=== PATIENT | female | born 1950 | race Caucasian/White ===

== ENCOUNTER 2022-02-16 05:54 | Day surgery (SDC) | payer MEDICARE, SELFPAY ==
[2022-02-16] VITALS (8 sets, daily range): BP systolic 114–171; BP diastolic 58–79; PULSE 65–80; RESP 16–18; TEMP 36.1–36.5; O2SAT 96–100; BMI 34.7
[2022-02-16 06:40] LABS: Bedside Glucose 93 mg/dL (74-106)
[2022-02-16] MEDS: Lactated Ringers 1,000 ML 30 ML IV (06:47)
--- NOTE | 2022-02-16 07:27 | PCM.OPRPT ---
Problems Associated Problem List Diagnoses (1) Left renal stone: Report of Operation Date of Procedure: 02/16/22 Pre-Operative Diagnosis: Left renal calculus Post-Operative Diagnosis: Same Surgery/Procedure Performed:: Cystoscopy with left ureteral stent insertion, left extracorporal shockwave lithotripsy Surgeon: Silvana Munoz Type of Anesthesia: General Description of Procedure: The patient is a 71-year-old female with a large left renal calculus who presents for definitive surgical intervention. Informed consent was obtained. The patient was taken to the operating room and placed on the operating room table. Anesthesia monitored the head, neck, airway, IV access and vital signs throughout the case. Once anesthesia was administered, the patient was placed into dorsal lithotomy position was prepped and draped in usual sterile fashion. The cystoscope was inserted through the urethra under direct visualization into the urinary bladder. The bladder mucosa was visualized in its entirety and found to be without evidence of erythema mass or abnormality. The left ureteral orifice was easily identified and intubated with a 0.035 Glidewire. It curled into the renal pelvis and a 6 x 24 JJ stent was placed over the wire without difficulty, being positioned in the renal pelvis as well as curling in the urinary bladder. The patient's bladder was then emptied and she was repositioned on the operative table. The stone being easily identified, was shocked 3000 times and appeared to be fragmented at the conclusion of the case. At this point the patient was awakened and taken the recovery room in good condition. There were no complications during this procedure. Please note that there is 1 approximately 6 to 7 mm distal right lower pole calculus on fluoroscopy. Grafts/Implants Used: 6 x 24 JJ stent Complications None Admit VTE Documentation VTE Present on Admission: Yes VTE Mechan Device Prophylaxis: SCD's VTE Pharm Prophylaxis ordered?: No Reason prophylaxis not ordered:: Treatment Not Indicated
--- NOTE | 2022-02-16 07:28 | DCINST_ITS ---
Discharge Instructions Diet Discharge Diet: No restrictions Activity Discharge Activity: Return to Normal Activity and [place] [address] (When not taking pain medication) May resume sexual activity in: No Restrictions Dressing / Incision Call your doctor if you observe: Fever of 101 or Higher, Inability to urinate and Inability to have a bowel movement Follow Up Care Please Follow Up With: Silvana Munoz MD When: 2 to 3 weeks with a KUB, call office for appointment Test Results: Test results from this visit will be discussed in further detail at your follow-up appointment, if applicable. Discharge Plan Admission Attending Provider: Silvana Munoz Discharge Orders/Prescriptions Prescriptions: New ondansetron HCl [ondansetron HCl] 8 MG tablet 8 mg PO Q8H PRN PRN (Reason: Nausea) 7 Days Qty: 20 RF: 0 oxycodone-acetaminophen [oxycodone-acetaminophen] 1 TABLET tablet 2 tab PO Q8H PRN PRN (Reason: Pain) 7 Days Qty: 20 RF: 0 cephalexin [cephalexin] 500 MG capsule 500 mg PO Q12 3 Days Qty: 6 RF: 0 phenazopyridine [Pyridium] 200 MG tablet 200 mg PO TID PRN PRN (Reason: Bladder Spasms) 7 Days Qty: 30 RF: 0 No Action Auto Logus 1 drp EACH EYE Q6H RF: 0 losartan 50 mg Tablet 50 mg PO BID RF: 0 metformin 500 mg Tablet 500 mg PO DAILY RF: 0 ondansetron HCl [Zofran] 4 mg Tablet 4 mg PO Q6H PRN (Reason: Nausea) RF: 0 tramadol 50 mg Tablet 50 mg PO BID PRN (Reason: Pain) RF: 0 ascorbic acid (vitamin C) [Vitamin C] 250 mg Tablet 250 mg PO DAILY RF: 0 pantoprazole 40 mg Tablet,Delayed Release (Dr/Ec) 40 mg PO DAILY RF: 0 zinc 25 mg Tablet 25 mg PO DAILY RF: 0 hydroxychloroquine [Plaquenil] 200 mg Tablet 300 mg PO DAILY RF: 0 zolpidem 10 mg Tablet 10 mg PO QHS RF: 0 Refresh Celluvisc 1 % Dropperette 1 drp EACH EYE BID RF: 0 gabapentin 300 mg Tablet 300 mg PO TID RF: 0 Neupro 4 mg/24 hour Patch 24 Hour 4 mg TRANSDERMAL DAILY RF: 0 cholecalciferol (vitamin D3) [Vitamin D3] 125 mcg (5,000 unit) Tablet 125 mcg PO DAILY RF: 0 thyroid (pork) [[place] Thyroid] 120 mg Tablet 120 mg PO DAILY RF: 0 Referrals / Follow Up: CHARLEY SAINZ [Other] Disposition Disposition (needs filled in before D/C Order can be placed): Home, Self Care
[2022-02-16] MEDS: Cefazolin 2 GM in 0.9% Normal Saline 100 ML IV (07:30)
--- NOTE | 2022-02-16 08:40 | SUR.PHASEI ---
PATIENT STARTED COMPLAINING OF LEFT SIDE CHEST PRESSURE RATING A 3 AND SOMETHING SHE HAS NEVER HAD BEFORE. OXYGEN 2 LITERS APPLIED AND STAT EKG CALLED FOR. DR. LYONS NOTIFIED AND ORDERED A STAT TROPONIN. EKG DONE BY RESPIRATORY AND SHOWED NORMAL SINUS RHYTHM. DR. LYONS NOTIFIED OF THIS AND STATED IF TROPONIN IS NORMAL RUN A STAT D DIMER. PATIENT IS RESTING COMFORTABLY OTHER RODRIGUEZ, NO NAUSEA AND VITALS STABLE.
--- NOTE | 2022-02-16 09:13 | EKG12_ITS ---
Test Reason : Blood Pressure : / mmHG Vent. Rate : 069 BPM Atrial Rate : 069 BPM P-R Int : 198 ms QRS Dur : 084 ms QT Int : 428 ms P-R-T Axes : 074 -01 001 degrees QTc Int : 458 ms Normal sinus rhythm Normal ECG No previous ECGs available Confirmed by MIKE MAOHNEY, WAI ([id number]), marketing editor LOU FRIAS ([id number]) on 02/21/2022 12:20:52 PM Referred By: Silvana Munoz Confirmed By:WAI MCKEON MD
[2022-02-16 09:23] LABS: Troponin-I HS 4 pg/mL (3.0-54.0)
[2022-02-16 09:25] LABS: Bedside Glucose 85 mg/dL (74-106)
--- NOTE | 2022-02-16 09:52 | SUR.PHASEI ---
TROPONIN IS NEGATIVE. DR. LYONS NOTIFIED AND ORDERED A STAT D DIMER. ALREADY DRAWN BY THIS NURSE. SINCE PATIENT'S PRESSURE IS BETTER SHE IS OK TO GO OVER TO PHASE 2 TO WAIT ON THIS RESULT.
[2022-02-16 10:10] LABS: D-Dimer Quantitative (DVT/PE) 0.54 FEU/ug/m (0.27-0.49)
== END 2022-02-16 11:32 | disposition home or self-care (01) ==
LOC: SDC 05:56 → AC 05:58
PROVIDERS: Anesthesiology; Referring Provider Urology; Visit Provider Urology
PROC: (CPT 50590; principal; 2022-02-16 07:20)
DX: N20.0 Calculus of kidney (principal); M35.00 Sjogren syndrome, unspecified; M06.9 Rheumatoid arthritis, unspecified; E11.9 Type 2 diabetes mellitus without complications; I10 Essential (primary) hypertension; E03.9 Hypothyroidism, unspecified; R11.0 Nausea; R10.30 Lower abdominal pain, unspecified; Z79.890 Hormone replacement therapy; Z79.899 Other long term (current) drug therapy; Z79.84 Long term (current) use of oral hypoglycemic drugs; M19.90 Unspecified osteoarthritis, unspecified site; K21.9 Gastro-esophageal reflux disease without esophagitis; G25.81 Restless legs syndrome
CPT/HCPCS: 52332; 82962; 84484; 85379; 93005; J7120; C2617; J2405

== ENCOUNTER → 2022-03-09 | Outpatient (CLI) | payer MEDICARE, SELFPAY ==
--- NOTE | 2022-03-09 12:55 | RAD_ITS ---
EXAM: XR ABDOMEN, 1 VIEW CLINICAL INDICATION: KUB- KIDNEY CALC TECHNIQUE: Frontal supine view of the abdomen/pelvis. This report was created using [employer] report generation technology. COMPARISON: None. FINDINGS: LOWER THORAX: No acute pathology. GASTROINTESTINAL TRACT: Unremarkable. Non-obstructive. No bowel or stomach distention. ORGANS: There are multiple metallic clips in the right upper quadrant. This is consistent for a cholecystectomy. No organomegaly. No abnormal calcifications. BONES/JOINTS: Degenerative findings in the lumbar spine. SOFT TISSUES: No acute pathology. TUBES, LINES AND DEVICES: Double-J left ureteral stent. RAD/Abdomen Single View IMPRESSION: No acute findings. Electronically Signed: Carlos A Bryan MD at 17:03 EDT ,
== END | disposition home or self-care (01) ==
LOC: MTRAD 12:41
PROVIDERS: Referring Provider Urology; Visit Provider Urology
DX: N20.0 Calculus of kidney (principal)
CPT/HCPCS: 74018

== ENCOUNTER → 2022-03-19 | Outpatient (CLI) | payer MEDICARE, SELFPAY ==
--- NOTE | 2022-03-19 13:40 | RAD_ITS ---
STUDY: XR Abdomen 1 View 03/19/2022 1:46 PM REASON FOR EXAM: Female, 71 years old. ABDOMINAL PAIN KIDNEY STONES TECHNIQUE: XR Abdomen 1 View COMPARISON: 03.09.22 FINDINGS: Double-J left ureteral stent in place. There are multiple metallic clips in the right upper quadrant. This is consistent for a cholecystectomy. Calculi visualized overlying the region of the left kidney. There is an unremarkable bowel gas pattern. There is no demonstrated free abdominal air. The visualized liver, spleen and kidneys are grossly normal in size and morphology. Normal soft tissue structures. There are diffuse degenerative changes of the visualized lumbar spine. There is scoliosis of the lumbar spine. RAD/Abdomen Single View IMPRESSION: Calculi visualized overlying the region of the left kidney. Electronically Signed: Carlos A Bryan MD at 14:46 EDT ,
== END | disposition home or self-care (01) ==
LOC: MTRAD 13:39
PROVIDERS: Referring Provider Urology; Visit Provider Urology
DX: N20.0 Calculus of kidney (principal)
CPT/HCPCS: 74018

== ENCOUNTER 2022-04-05 13:20 | Day surgery (SDC) | payer MEDICARE, SELFPAY ==
[2022-04-05] VITALS (7 sets, daily range): BP systolic 92–153; BP diastolic 63–80; PULSE 68–78; RESP 16–18; TEMP 36.2–36.3; O2SAT 90–100; BMI 34.3
[2022-04-05] MEDS: Lactated Ringers 1,000 ML 15 ML IV ×2 (14:03→16:15)
[2022-04-05] MEDS: Cefazolin 2 GM in 0.9% Normal Saline 100 ML IV (14:56)
[2022-04-05] MEDS: DiphenhydrAMINE 50 MG/ML Syringe 25 MG IV (15:32)
--- NOTE | 2022-04-05 15:52 | EX.PCM.DISCH ---
Discharge Instructions Diet Discharge Diet: No restrictions Activity Discharge Activity: Return to Normal Activity Dressing / Incision Call your doctor if you observe: Fever of 101 or Higher, Inability to urinate and Inability to have a bowel movement Follow Up Care Please Follow Up With: Silvana Munoz MD When: 2-3 weeks in the office with KUB Test Results: Test results from this visit will be discussed in further detail at your follow-up appointment, if applicable. Discharge Plan Admission Attending Provider: Silvana Munoz Primary Care Provider: CHARLEY SAINZ Discharge Orders/Prescriptions Prescriptions: New ondansetron HCl [ondansetron HCl] 8 mg tablet 8 mg PO Q8H PRN PRN (Reason: Nausea) 7 Days Qty: 20 0RF oxycodone-acetaminophen [Percocet] 5-325 mg tablet 1 tab PO Q8H PRN (Reason: pain) 5 Days Qty: 15 0RF cephalexin [cephalexin] 500 mg capsule 500 mg PO Q12 3 Days Qty: 6 0RF Continued Auto Logus 1 drp EACH EYE Q6H losartan 50 mg Tablet 50 mg PO BID metformin 500 mg Tablet 500 mg PO DAILY ondansetron HCl 4 mg Tablet 4 mg PO Q6H PRN (Reason: Nausea) tramadol 50 mg Tablet 50 mg PO BID PRN (Reason: Pain) ascorbic acid (vitamin C) [Vitamin C] 250 mg Tablet 250 mg PO DAILY pantoprazole 40 mg Tablet,Delayed Release (Dr/Ec) 40 mg PO DAILY zinc 25 mg Tablet 25 mg PO DAILY hydroxychloroquine [Plaquenil] 200 mg Tablet 300 mg PO DAILY zolpidem 10 mg Tablet 10 mg PO QHS carboxymethylcellulose sodium 1 % Dropperette 1 drp EACH EYE BID gabapentin 300 mg Tablet 300 mg PO TID Neupro 4 mg/24 hour Patch 24 Hour 4 mg TRANSDERMAL DAILY cholecalciferol (vitamin D3) [Vitamin D3] 125 mcg (5,000 unit) Tablet 125 mcg PO DAILY thyroid (pork) [[place] Thyroid] 120 mg Tablet 120 mg PO DAILY phenazopyridine [Pyridium] 200 MG tablet 200 mg PO TID PRN PRN (Reason: Bladder Spasms) 7 Days Qty: 30 0RF Xiidra 5 % Dropperette 1 drp EACH EYE Q12H Referrals / Follow Up: EMELI,CHARLEY [Other] Disposition Disposition (needs filled in before D/C Order can be placed): Home, Self Care
[2022-04-05 16:16] LABS: Bedside Glucose 83 mg/dL (74-106)
[2022-04-05 17:35] LABS: Bedside Glucose 74 mg/dL (74-106)
--- NOTE | 2022-04-06 12:22 | PCM.OPRPT ---
Report of Operation Date of Procedure: 04/05/22 Pre-Operative Diagnosis: Bilateral renal stones Post-Operative Diagnosis: Same Surgery/Procedure Performed:: Bilateral renal extracorporal shockwave lithotripsy Surgeon: Silvana Munoz Type of Anesthesia: General Specimen's removed: None Description of Procedure: The patient is a 71-year-old female with bilateral renal stones. Previously she has undergone a lithotripsy for a 1.5 cm left renal calculus stent has been removed. She has a small remaining residual on the left and an approximately 6 to 7 mm stone on the right side. She has agreed to proceed with shockwave lithotripsy for both sides. The patient was taken to the operating room and placed on the lithotripter table. Anesthesia monitored the head, neck, airway, IV access and vital signs throughout the case. Once anesthesia was appropriately administered, she was positioned with the lithotripter and the stones in the right kidney were seen and 1600 shocks were applied. The stones were no longer visible. A total of 1400 shocks were then applied to the remaining left stone debris. The patient was then awakened and taken to the recovery room in good condition. There were no complications during this procedure. Grafts/Implants Used: None Complications None Admit VTE Documentation VTE Present on Admission: Yes VTE Mechan Device Prophylaxis: SCD's VTE Pharm Prophylaxis ordered?: No Reason prophylaxis not ordered:: Treatment Not Indicated
== END 2022-04-05 17:47 | disposition home or self-care (01) ==
LOC: SDC 13:21 → AC 13:22
PROVIDERS: Referring Provider Urology; Visit Provider Urology
PROC: (CPT 50590; principal; 2022-04-05 14:50)
DX: N20.0 Calculus of kidney (principal); M06.9 Rheumatoid arthritis, unspecified; E11.9 Type 2 diabetes mellitus without complications; K21.9 Gastro-esophageal reflux disease without esophagitis; Z87.19 Personal history of other diseases of the digestive system; G25.81 Restless legs syndrome; I10 Essential (primary) hypertension
CPT/HCPCS: 50590; 00873; 82962; J7120; J2405

== ENCOUNTER → 2022-04-23 | Outpatient (CLI) | payer MEDICARE, SELFPAY ==
--- NOTE | 2022-04-23 08:52 | RAD_ITS ---
INDICATION: CALC OF KIDNEY EXAMINATION/TECHNIQUE: X-RAY - XR Abdomen 1 View COMPARISON: 03/19/2022. FINDINGS: Surgical clips visualized in the gallbladder fossa. The previously visualized left double-J ureteral stent has been removed. A subtle calcification is visualized superimposed over the mid pole of the left kidney measuring 0.2 cm. The remaining calcifications that were previously visualized over the left kidney are not seen. BOWEL GAS PATTERN: Non-obstructive. No bowel or stomach distention. FREE AIR: Not assessed on a single supine view. ORGANOMEGALY: Not seen. CALCIFICATIONS: No abnormal calcifications observed. LOWER CHEST: No acute pathology. BONES AND SOFT TISSUES: No acute pathology. RAD/Abdomen Single View IMPRESSION: Residual 0.2 cm calcification is visualized superimposed over the lateral aspect of the midpole of the left kidney. decreased stone burden is seen in comparison to the prior study. The previously visualized left ureteral stent has been removed. Electronically Signed: Vicente Mabry MD at 14:07 EDT ,
== END | disposition home or self-care (01) ==
PROVIDERS: Referring Provider Urology; Visit Provider Urology
DX: N20.0 Calculus of kidney (principal)
CPT/HCPCS: 74018

== ENCOUNTER → 2023-02-11 | Outpatient (CLI) | payer MEDICARE, SELFPAY ==
--- NOTE | 2023-02-11 07:51 | CT_ITS ---
STUDY: CT ABDOMEN AND PELVIS WITHOUT CONTRAST REASON FOR EXAM: Female, 72 years old. Kidney stone. LT SIDE ON US, LITHOTRIPSY, CIERA, HTN RADIATION DOSAGE (If Supplied By Facility): CTDIvol = ( 16.7 ) mGy, DLP = ( 746.71 ) mGycm TECHNIQUE: Transaxial images were obtained from the dome of the diaphragm to the symphysis pubis without oral contrast, and without intravenous contrast. Sagittal and coronal images were reconstructed. Individualized dose optimization techniques were used for this CT. COMPARISON: Abdominal x-ray dated April 23, 2022 FINDINGS: The visualized lung bases are unremarkable. The visualized portions of the heart are within normal limits. Normal liver. There are surgical clips in the gallbladder fossa consistent with a prior cholecystectomy. Normal spleen. Normal pancreas. Normal bilateral adrenal glands. Multiple small stones are scattered throughout both kidneys, slightly more on the right than left. The largest stone on the right measures 5.7 mm and on the left 5.8 mm. There is no visualized hydronephrosis or hydroureter. Normal visualized stomach. Normal small intestine. There are numerous descending and sigmoid colonic diverticula consistent with diverticulosis. A few diverticula of the descending colon are also present. The appendix is visualized and appears normal. No free air or free fluid or bowel dilatation is seen. There is no evidence of bowel obstruction. There is diffuse atherosclerotic calcification of the abdominal aorta, without a demonstrated aneurysm. Normal inferior vena cava. Normal retroperitoneum. Normal urinary bladder. Unremarkable uterus and adnexa. There is a small umbilical hernia containing fat. There are diffuse degenerative changes of the visualized lumbar spine. CT/Abdomen/Pelvis without Cont IMPRESSION: 1. Colonic diverticulosis 2. Multiple bilateral kidney stones. No hydronephrosis is present. Electronically Signed: Tommy Wade MD at 10:27 EDT ,
== END | disposition home or self-care (01) ==
LOC: CT 07:50
PROVIDERS: Referring Provider Urology; Visit Provider Urology
DX: N20.0 Calculus of kidney (principal)
CPT/HCPCS: 74176

== ENCOUNTER → 2023-04-16 | Outpatient (CLI) | payer MEDICARE, SELFPAY ==
--- NOTE | 2023-04-16 10:22 | RAD_ITS ---
STUDY: X-RAY - ABDOMEN/PELVIS REASON FOR EXAM: Female, 72 years old. Renal calculi. Follow-up. TECHNIQUE: Single AP view of the abdomen / pelvis on 2 images. COMPARISON: Abdominal x-ray dated April 2022. FINDINGS: Normal visualized lung bases. Normal bowel gas pattern with gas and moderate amount feces obscuring renal outlines. No demonstrated free abdominal air. The visualized liver, spleen and kidneys are grossly normal in size and morphology. Stable cholecystectomy clips. Normal visualized osseous structures. RAD/Abdomen Single View IMPRESSION: Bowel gas and feces obscure the renal outlines. No renal calculi identified. Electronically Signed: Jarrod Domínguez MD at 14:29 EDT ,
== END | disposition home or self-care (01) ==
PROVIDERS: Referring Provider Urology; Visit Provider Urology
DX: N20.0 Calculus of kidney (principal)
CPT/HCPCS: 74018

== ENCOUNTER → 2024-08-24 | Outpatient (CLI) | payer MEDICARE, SELFPAY ==
--- NOTE | 2024-08-24 10:01 | RAD_ITS ---
EXAM: XR ABDOMEN, 1 VIEW CLINICAL INDICATION: KIDNEY STONES TECHNIQUE: Frontal supine view of the abdomen/pelvis. COMPARISON: April 16, [address] July 27, 2024. FINDINGS: LOWER THORAX: No acute pathology. GASTROINTESTINAL TRACT: Mild stool in the right colon and mild scattered bowel gas. Non-obstructive. No bowel or stomach distention. ORGANS: Cholecystectomy clips are again noted. Bilateral nephrolithiasis, better seen than on prior exam or new, including suspected 5 mm stone at the right L2 level and 3.8 mm suspected stone at the left L2 level. No evidence of distal ureter stone. Multiple tiny intrapelvic calcifications appear to be stable phleboliths. No organomegaly. BONES/JOINTS: There is marked left disc space narrowing and vacuum disc at L3-4, and diffuse disc space narrowing at L4-5 and L5-S1. Mild levoscoliosis centered at L1-2. SOFT TISSUES: No acute pathology. RAD/Abdomen Single View IMPRESSION: 1. Bilateral presumed nephrolithiasis, better seen than on prior radiograph. 2. There are are several scattered stones in each kidney on recent CT, most of which are not visible on the radiograph. Electronically Signed: Catrachita Vance MD at 2:06 EST ,
== END | disposition home or self-care (01) ==
PROVIDERS: Referring Provider Urology; Visit Provider Urology
DX: N20.0 Calculus of kidney (principal)
CPT/HCPCS: 74018

== ENCOUNTER 2024-09-10 09:30 | Day surgery (SDC) | payer MEDICARE, SELFPAY ==
[2024-09-03 12:01] LABS: Hematocrit 37.1 % (37-47); Hemoglobin 12.2 g/dL (12.0-15.0); Mean Corp Hgb Conc 32.9 g/dL (32-36); Mean Corpuscular Hgb 30.5 pg (27.0-32.0); Mean Corpuscular Volume 92.8 fL (81-99); Mean Platelet Vol. 9.9 fl (6.2-12.0); Platelet Count 311 K/mm3 (150-450); RBC Distribution Width CV 13.5 % (11.6-14.6); RBC Distribution Width SD 46.3 fl (35.1-43.9); White Blood Count 4.6 K/mm3 (4.4-11.0)
[2024-09-03 12:23] LABS: Anion Gap 4 (5-15); BUN 13 mg/dL (7-18); BUN/Creat Ratio 11.9 RATIO (10-20); Calcium,Total 9.7 mg/dL (8.5-10.1); Chloride 104 mmol/L (98-107); Creatinine, Serum 1.09 mg/dL (0.55-1.02); EST Glomerular Filtration Rate 52 mL/min (>60); Est Glom Filt Rate - Afr Amer 63 mL/min (>60); Glucose 96 mg/dL (74-106); Potassium 3.6 mmol/L (3.5-5.1); Sodium Level 137 mmol/L (136-145)
[2024-09-10] VITALS (12 sets, daily range): BP systolic 131–171; BP diastolic 62–88; PULSE 56–72; RESP 16; TEMP 36.1–36.9; O2SAT 92–100; BMI 28.5
--- NOTE | 2024-09-10 09:44 | EX.PCM.DISCH ---
Discharge Instructions Diet Discharge Diet: No restrictions Activity Discharge Activity: Return to Normal Activity Dressing / Incision Call your doctor if you observe: Fever of 101 or Higher, Inability to urinate and Inability to have a bowel movement Follow Up Care Please Follow Up With: Silvana Munoz MD When: In the office in 3 weeks with a KUB Test Results: Test results from this visit will be discussed in further detail at your follow-up appointment, if applicable. Discharge Plan Admission Attending Provider: Silvana Munoz Primary Care Provider: Naomy Gibson Instructions Print Language: [place] Discharge Orders/Prescriptions Prescriptions: New oxycodone-acetaminophen 5-325 mg tablet 1 tab PO Q8H PRN PRN (Reason: Pain) 3 Days Qty: 10 0RF cephalexin 500 mg capsule 500 mg PO Q12 3 Days Qty: 6 0RF ondansetron 4 mg tablet,disintegrating 4 mg PO Q8H PRN (Reason: nausea and vomiting) Qty: 10 0RF Continued losartan 50 mg Tablet 50 mg PO BID ondansetron HCl 4 mg Tablet 4 mg PO Q6H PRN (Reason: Nausea) tramadol 50 mg Tablet 50 mg PO BID PRN (Reason: Pain) pantoprazole 40 mg Tablet,Delayed Release (Dr/Ec) 40 mg PO DAILY hydroxychloroquine [Plaquenil] 200 mg Tablet 300 mg PO DAILY zolpidem 10 mg Tablet 10 mg PO QHS Neupro 4 mg/24 hour Patch 24 Hour 4 mg TRANSDERMAL DAILY levothyroxine 137 mcg capsule 137 mcg PO DAILY amlodipine 2.5 mg tablet 2.5 mg PO DAILY propranolol 10 mg tablet 10 mg PO DAILY gabapentin 300 mg capsule 300 mg PO TID PRN (Reason: pain) duloxetine 30 mg capsule,delayed release(DR/EC) 30 mg PO DAILY Mounjaro 5 mg/0.5 mL pen injector 5 mg subcut SA Referrals / Follow Up: NAOMY GIBSON [Other] Disposition Disposition (needs filled in before D/C Order can be placed): Home, Self Care
--- NOTE | 2024-09-10 09:45 | OP.PCM_ITS ---
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: No Type of Anesthesia: General RN Documented Start/Stop Times: Operation Date: 09/10/24 11:20 Case Time Into Pre-Op 09/10/24 10:07 Out of Pre-Op 09/10/24 11:30 Anesthesia Start 09/10/24 11:34 Into Room 09/10/24 11:34 Procedure Start 09/10/24 11:45 Procedure End 09/10/24 13:07 Anesthesia End 09/10/24 13:14 Out of Room 09/10/24 13:14 Into Recovery 09/10/24 13:17 Procedure Start Time: 11:45 Procedure Stop Time: 13:07 Select all DRAINS/GRAFTS/IMPLANTS that apply: None Estimated Blood Loss: <5cc Specimen collected: No Description of surgery: The patient is a 73-year-old female with bilateral renal stones. She has had shockwave lithotripsy in the past. She understands the risk of doing bilateral treatments without stent insertions and she desires to proceed with this plan. She does not do well with dense and has had bilateral treatment previously. She understands that she could have issues with bleeding and renal failure along with ureteral obstruction. Informed consent was obtained. She was taken to the operating room and placed on the operating room table. Anesthesia monitored the head, neck, airway, IV access and vital signs throughout the case. Once anesthesia was appropriately ministered, she was placed in alignment with the lithotripter. Her stones were easily visualized bilaterally. 3000 shocks were applied to the stones in each kidney. She was then awakened and taken to the recovery room in good condition. There were no complications during this procedure. Surgical Findings: Bilateral stones identified and well fragmented at the conclusion of the case. Complications Complications: No Admit VTE Documentation VTE Present on Admission: Yes VTE Mechan Device Prophylaxis: SCD's VTE Pharm Prophylaxis ordered?: No Reason prophylaxis not ordered: Treatment Not Indicated
[2024-09-10] MEDS: 0.9% Normal Saline (1000mL) 1,000 ML 15 ML IV (10:33)
[2024-09-10 10:55] LABS: Bedside Glucose 106 mg/dL (74-106)
--- NOTE | 2024-09-10 11:00 | PCM.PRE.AN2 ---
ASA Classification* ASA Classification ASA Classification: 3 Assessment & Plan Anesthesia* Anesthesia Assessment Anesthesia Assessment: Discussed sedation and/or anesthesia options, risks, benefits, and alternatives with patient/parents/legal guardian/POA. Questions invited. The patient/parents/legal guardian/POA seems to understand and agrees to proceed with anesthesia plan. Reviewed the physical assessment, medical history, allergy history and patient home medications list prior to surgery/procedure/anesthetic and documented any changes. Performed airway and anesthesia risk assessments. Anesthesia Type Anesthesia Type: General (Patient has significant history of postop nausea vomiting. Last successful anesthetic was with TIVA and Decadron.) History Source History Obtained from:: Patient and Chart Anesthesia Focused Assessment* Temperature: 98.4 F Pulse Rate: 58 Blood Pressure: 149/62 Respiratory Rate: 16 Pulse Ox: 96 Oxygen Delivery Method: Room Air Airway Assessment Mouth opens: >3 cm Mallampati Score: II Teeth Condition: Caps/Crowns (Patient has multiple crowns. They are all tight.) Neck Range of motion (ROM): Limited ROM (Slight decrease in extension) Focused Labs Anesthesia Preop lab: CBC WBC 4.6 K/mm3 (4.4-11.0) 09/03/24 10:11 RBC 4.00 M/mm3 (4.2-5.4) L 09/03/24 10:11 Hgb 12.2 g/dL (12.0-15.0) 09/03/24 10:11 Hct 37.1 % (37-47) 09/03/24 10:11 Plt Count 311 K/mm3 (150-450) 09/03/24 10:11 CHEMISTRY Potassium 3.6 mmol/L (3.5-5.1) 09/03/24 10:11 Sodium 137 mmol/L (136-145) 09/03/24 10:11 BUN 13 mg/dL (7-18) 09/03/24 10:11 Creatinine 1.09 mg/dL (0.55-1.02) H 09/03/24 10:11 Glucose 96 mg/dL (74-106) 09/03/24 10:11 POC Glucose 106 mg/dL (74-106) 09/10/24 10:23 COAG Pre-Assessment Diagnosis/Proposed Procedure Planned Operative Procedure(s): (B) ESWL Anesthesia History 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 When Was Last Pacemaker Check QUESTION #4 FULL TEXT: You/Your Family Experience fever (hyperthermia) with Anesthesia Last Oral Intake Last Oral intake: Last Oral Intake NPO since 21:00 09/10/24 10:10 Meds taken in AM with sips of Yes 09/10/24 10:10 water? Meds patient instructed to AMLODIPINE, LOSARTAN, 09/10/24 10:10 take am of surgery PANTOPRAZOLE, PONV PONV - emergency dispatch operator: PONV - emergency dispatch operator Female Yes 09/02/24 13:37 HX of Motion Sickness Yes 09/02/24 13:37 HX of N/V After Surgery Yes 09/02/24 13:37 Non-Smoker Yes 09/02/24 13:37 Duration of Surgery greater No 09/02/24 13:37 than 60 minutes Number of Risk Factors 4 09/02/24 13:37 PONV Score Severe Risk 09/02/24 13:37 Height & Weight Height & Weight: Anesthesia: Height & Weight Height 5 ft 3 in 09/10/24 10:10 Weight: 73 kg 09/10/24 10:10 Body Mass Index (BMI) 28.5 09/10/24 10:10 Respiratory Assessment Respiratory Assessment - emergency dispatch operator: Respiratory Tract Infection Hx - emergency dispatch operator Hx Respiratory Tract Infection No 09/02/24 13:37 STOP Sleep Apnea STOP Sleep Apnea - emergency dispatch operator: STOP Sleep Apnea - emergency dispatch operator Hx Hypertension Yes: CONTROLLED ON MED 09/02/24 13:37 Hx Sleep Apnea No 09/02/24 13:37 CPAP BIPAP Do you snore loudly (louder No 09/02/24 13:37 than talking or can be heard Do you often feel tired/ No 09/02/24 13:37 fatigued/ sleepy during daytime? Has anyone observed you stop No 09/02/24 13:37 breathing during sleep? STOP Results Negative 09/02/24 13:37 QUESTION #5 FULL TEXT : Do you snore loudly (louder than talking or can be heard through closed doors)? 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 Specify any problems Hx of Preganancy in last 3 N/A 09/02/24 13:37 Months Nurse Filling Out Transfusion NBUCHER 09/02/24 13:37 & Questions: Date: 09/02/24 09/02/24 13:37 Time: 13:39 09/02/24 13:37 Patient unable to answer at this time (ie. confused, unrespo /Reproduction History /Reproductive History - emergency dispatch operator: /Reproductive Hx- emergency dispatch operator Hx Now Gestational Age (in weeks): EDC: Hx Hx Para Hx Section SAB Active Medications Active Medications: Current Medications Generic Name Dose Route Start Last Admin Trade Name Freq PRN Reason Stop Dose Admin Cefazolin Sodium 2 gm/ N/A 20 mls @ 400 mls/hr 09/10/24 11:20 IV 09/10/24 11:22 PREOP ONE Sodium Chloride 1,000 mls @ 15 mls/hr 09/10/24 10:35 09/10/24 10:33 IV 09/13/24 05:14 15 mls/hr .Q48H ELIESER Administration Protocol PFSH Medical History Loss of hearing Wears hearing aid Osteoarthritis Diverticulosis Left renal stone Post-menopausal Wears glasses Thyroid disease Diabetes Kidney stones Rheumatoid arthritis Arthritis Restless legs Back pain Hx of Sjogren's disease History of hiatal hernia History of diverticulitis Gastric reflux History of echocardiogram Hypertension Home Medications ?Medication ?Instructions ?Recorded ?Last Taken ?Type hydroxychloroquine 200 mg tablet 300 mg PO DAILY 01/30/22 04/05/22 History (Plaquenil) losartan 50 mg tablet 50 mg PO BID 01/30/22 09/10/24 History ondansetron HCl 4 mg tablet 4 mg PO Q6H PRN Nausea 01/30/22 Unknown History pantoprazole 40 mg tablet,delayed 40 mg PO DAILY 01/30/22 09/10/24 History release rotigotine 4 mg/24 hour 4 mg transdermal DAILY 01/30/22 Unknown History transdermal 24 hour patch (Neupro) tramadol 50 mg tablet 50 mg PO BID PRN Pain 01/30/22 Unknown History zolpidem 10 mg tablet 10 mg PO QHS 01/30/22 Unknown History amlodipine 2.5 mg tablet 2.5 mg PO DAILY 09/02/24 09/10/24 History duloxetine 30 mg capsule,delayed 30 mg PO DAILY 09/02/24 Unknown History release gabapentin 300 mg capsule 300 mg PO TID PRN pain 09/02/24 Unknown History levothyroxine 137 mcg capsule 137 mcg PO DAILY 09/02/24 Unknown History propranolol 10 mg tablet 10 mg PO DAILY 09/02/24 Unknown History tirzepatide 5 mg/0.5 mL 5 mg subcut SA 09/02/24 08/28/24 09:06 History subcutaneous pen injector (Mounjaro) Allergy/AdvReac Type Severity Reaction Status Date / Time No Known Allergies Allergy Verified 09/02/24 13:31 Surgical History Hx of cystoscopy Hx of colonoscopy Hx laparoscopic cholecystectomy Hx of toe surgery Hx of total knee replacement Social History Smoking Status: Never smoker Review of Systems (Anesthesia) ROS Narrative System reviewed and no additional complaints, except as documented.
[2024-09-10] MEDS: Cefazolin 2 GM in Syringe IV (11:34)
--- NOTE | 2024-09-10 13:23 | PCM.POST.ANE ---
Anesthesia: Postop Eval I Current Vital Signs Temperature: 97 F Pulse Rate: 58 Blood Pressure: 154/69 Respiratory Rate: 16 Pulse Ox: 96 Oxygen Delivery Method: Room Air Assessment Airway patent: Yes Spontaneous unlabored respirations: Yes Mental status: Awake and Calm nausea: No Vomiting: No Anesthesia Complication: No Fluid Hydration Crystalloid volume administer (ml): 900 Total IV fluid infused: 900 Progress Note Anesthesia document: Postop Eval 1 completed: Yes
[2024-09-10] MEDS: Ketorolac 15 MG/ML Vial IV (14:23)
[2024-09-10] MEDS: traMADol 50 MG Tablet PO (14:47)
[2024-09-10] MEDS: Phenazopyridine 95 MG Tablet 190 MG PO (14:47)
--- NOTE | 2024-09-11 07:36 | POSTOPAN2_ITS ---
Anesthesia Postop Eval I Sum Postop Eval Completion status Anesthesia document: Postop Eval 1 completed: Yes Anesthesia Postop Eval I Summary Anesthesia Postop Eval I Summary: Anesthesia Postop Eval I: Assessment Summary Airway patent Yes 09/10/24 13:23 DIRECTOR OF EPIDEMIOLOGY.SKOBY Spontaneous unlabored Yes 09/10/24 13:23 DIRECTOR OF EPIDEMIOLOGY.SOPHIA respirations Mental status Awake,Calm 09/10/24 13:23 DIRECTOR OF EPIDEMIOLOGY.LUISAOBCristina nausea No 09/10/24 13:23 DIRECTOR OF EPIDEMIOLOGY.LUISAOBCristina Vomiting No 09/10/24 13:23 DIRECTOR OF EPIDEMIOLOGY.LUISAOBCristina Anesthesia Postop Eval I: Fluid Summary Crystalloid volume administer 900 09/10/24 13:23 DIRECTOR OF EPIDEMIOLOGY.LUISAOBY (ml) Colloids volume administered ( ml) Blood Product volume administered (ml) Total IV fluid infused 900 09/10/24 13:23 DIRECTOR OF EPIDEMIOLOGY.SOPHIA Anesthesia Postop Eval I: Summary Notes Anesthesia Complication No 09/10/24 13:23 DIRECTOR OF EPIDEMIOLOGY.SOPHIA Anesthesia Complication Comment: Post-operative progress note Anesthesia: Postop Eval II Evaluation Mental status: Awake Pain Level: 0 nausea: No Vomiting: No
--- NOTE | 2024-09-11 07:36 | PCM.POSTANE2 ---
Anesthesia Postop Eval I Sum Postop Eval Completion status Anesthesia document: Postop Eval 1 completed: Yes Anesthesia Postop Eval I Summary Anesthesia Postop Eval I Summary: Anesthesia Postop Eval I: Assessment Summary Airway patent Yes 09/10/24 13:23 SKINNING MACHINE FEEDER.SKOBY Spontaneous unlabored Yes 09/10/24 13:23 SKINNING MACHINE FEEDER.SOPHIA respirations Mental status Awake,Calm 09/10/24 13:23 SKINNING MACHINE FEEDER.LUISAOBCristina nausea No 09/10/24 13:23 SKINNING MACHINE FEEDER.LUISAOBCristina Vomiting No 09/10/24 13:23 SKINNING MACHINE FEEDER.LUISAOBCristina Anesthesia Postop Eval I: Fluid Summary Crystalloid volume administer 900 09/10/24 13:23 SKINNING MACHINE FEEDER.LUISAOBY (ml) Colloids volume administered ( ml) Blood Product volume administered (ml) Total IV fluid infused 900 09/10/24 13:23 SKINNING MACHINE FEEDER.SOPHIA Anesthesia Postop Eval I: Summary Notes Anesthesia Complication No 09/10/24 13:23 SKINNING MACHINE FEEDER.SOPHIA Anesthesia Complication Comment: Post-operative progress note Anesthesia: Postop Eval II Evaluation Mental status: Awake Pain Level: 0 nausea: No Vomiting: No
== END 2024-09-10 15:20 | disposition home or self-care (01) ==
LOC: SDC 09:31 → AC 09:33
PROVIDERS: PCP Nurse Practitioner Family; Referring Provider Urology; Visit Provider Urology
PROC: (CPT 50590; principal; 2024-09-10 11:10)
DX: N20.0 Calculus of kidney (principal); E11.9 Type 2 diabetes mellitus without complications; I10 Essential (primary) hypertension; E03.9 Hypothyroidism, unspecified; Z87.442 Personal history of urinary calculi; Z90.49 Acquired absence of other specified parts of digestive tract; Z79.85 Long-term (current) use of injectable non-insulin antidiabetic drugs; Z79.899 Other long term (current) drug therapy; Z79.890 Hormone replacement therapy; K21.9 Gastro-esophageal reflux disease without esophagitis
CPT/HCPCS: 50590; 00873; 36415; 80048; 82962; 85027; A4216; J2405

== ENCOUNTER → 2024-09-28 | Outpatient (CLI) | payer MEDICARE, SELFPAY ==
--- NOTE | 2024-09-28 10:42 | RAD_ITS ---
HISTORY: KUB- KIDNEY STONE. TECHNIQUE: XR Abdomen 1 View. COMPARISON: 08/24/2024. FINDINGS: BOWEL GAS PATTERN: No dilated bowel loops identified. FREE AIR: Not assessed on supine view. CALCIFICATIONS: 2 mm calculus at the lower pole of the right kidney at the right L3 level. Segments again seen. BONES: Scoliosis and degenerative changes of the spine. SOFT TISSUES: Lung bases clear. Right upper quadrant surgical clips. RAD/Abdomen Single View IMPRESSION: Right nephrolithiasis. Electronically Signed: Sherron Uribe MD at 9:00 EST ,
== END | disposition home or self-care (01) ==
LOC: MTRAD 10:37
PROVIDERS: PCP Nurse Practitioner Family; Referring Provider Urology; Visit Provider Urology
DX: N20.0 Calculus of kidney (principal)
CPT/HCPCS: 74018